=== PATIENT | male | born 1960 | race Caucasian/White ===

== ENCOUNTER 2017-01-27 22:04 | Inpatient (IN) | payer OTHER ==
[~2017-01-27] VITALS: Ht 175.3 cm; Wt 111.5 kg
[2017-01-28 02:16] VITALS: BP 122/64
[2017-01-28 02:28] VITALS: Ht 175.3 cm; Wt 111.5 kg
[2017-01-28] MEDS ORDERED: GLUCAGON 1 MG INJ IM PRN (03:30)
[2017-01-28] MEDS ORDERED: DEXTROSE 50% 50 ML SYRINGE IV PRN ×2 (03:30)
[2017-01-28] MEDS ORDERED: GLUCOSE GEL 15 GRAM TUBE BUCCAL PRN (03:30)
[2017-01-28] MEDS ORDERED: morphine 4 MG/ML VIAL IV PRN (03:30)
[2017-01-28] MEDS ORDERED: ONDANSETRON 4 MG INJ IV PRN (03:30)
[2017-01-28] MEDS ORDERED: GLUCOSE GEL 15 GRAM TUBE PO PRN ×2 (03:30)
[2017-01-28 05:10] LABS: ADD SCAN DIFF NO
[2017-01-28 05:17] LABS: BASOPHIL # 0.1 10^3/ul (0.0-0.1); BASOPHILS % 0.7 % (0.0-2.0); EOSINOPHILS # 1.2 10^3/ul (0.0-0.5); EOSINOPHILS % 9.2 % (0.0-7.0); HEMATOCRIT 43.3 % (42.0-52.0); HEMOGLOBIN 14.6 g/dl (14.0-18.0); LYMPHOCYTES # 2.5 10^3/ul (0.8-2.9); LYMPHOCYTES % 19.2 % (15.0-51.0); MEAN CORPUSCULAR HEMOGLOBIN 29.7 pg (29.0-33.0); MEAN CORPUSCULAR HGB CONC 33.7 g/dl (32.0-37.0); MEAN PLATELET VOLUME 9.6 fl (7.4-10.4); MONOCYTES % 7.7 % (0.0-11.0); NEUTROPHIL # 8.2 10^3/ul (1.6-7.5); NEUTROPHILS % 62.7 % (39.0-77.0); PLATELET COUNT 263 10^3/UL (140-415); RED BLOOD COUNT 4.92 10^6/ul (4.70-6.10); RED CELL DISTRIBUTION WIDTH 12.9 % (11.5-14.5); WHITE BLOOD COUNT 13.2 10^3/ul (4.8-10.8)
[2017-01-28 05:42] LABS: CALCIUM 8.6 mg/dl (8.4-10.2); CHOL/HDL RATIO 5.2 RATIO; CREATININE 0.97 mg/dl (0.61-1.24); MAGNESIUM 1.8 mg/dl (1.7-2.5); POTASSIUM 3.5 mmol/L (3.5-5.1)
[2017-01-28] MEDS: DEXTROSE 5%-0.45% NACL 1,000 ML IV SCH ×3 (05:57→20:46)
[2017-01-28] MEDS: metroNIDAZOLE 500 MG/NS (PMX) 100 ML IVPB SCH ×3 (05:59→21:58)
[2017-01-28] MEDS: INSULIN ASPART [NOVOLOG] 3 ML PEN SC SCH ×3 (06:00→18:00)
[2017-01-28] MEDS ORDERED: AMLO5TAB4 PO (07:26)
[2017-01-28] MEDS ORDERED: ASPI81TA3 PO (07:26)
[2017-01-28] MEDS ORDERED: BENA40TA41 PO (07:26)
[2017-01-28] MEDS ORDERED: METO-429 PO (07:49)
[2017-01-28] MEDS ORDERED: HYD25 PO (07:49)
[2017-01-28 08:23] VITALS: BP 118/57; RESP 18
[2017-01-28] MEDS: INSULIN GLARGINE [LANtus] 3 ML PEN SC SCH (08:42)
[2017-01-28] MEDS: CIPROFLOXACIN 400MG/D5W 200 ML IVPB SCH ×2 (08:43→20:44)
--- NOTE | 2017-01-28 11:54 | HP ---
Date/Time of Note Date/Time of Note DATE: 01/28/17 TIME: 11:53 Assessment/Plan Lines/Catheters IV Catheter Type (from Nrsg): Peripheral IV Urinary Cath still in place: No Assessment/Plan Assessment/Plan 1. Diverticulitis - cipro and flagyl - stool cx including c-diff - pain mgmt - ID consult 2. Abd pain 2/2 above 3. Hx of HTN - cont meds and adjust as needed 4. Type II Diabetes - insulin while in-house HPI/ROS Admit Date/Time Admit Date/Time January 28, 2017 at 01:47 Hx of Present Illness Patient is a 56 yo male with hx of HTN and DM who presented to [facility] c/o abd pain and diarrhea of 1 month duration. Pain is mainly localized in LLQ area. Diarrhea is described as watery and loose, about 3 -4 times per day. Last BM was actually yesterday and he only had one episode of loose stool. Pt resides here in , but went to [facility] for a visit where his symptom of abd pain and diarrhea started. he attributed this to the sea food that he ate. denied sick contact. He did not seek help while he was in [facility]. He reported nausea. Denied chest pain, SOB, fever/chills. . PMH/Family/Social Social History Smoking Status: Former smoker Exam/Review of Systems Vital Signs Vitals Vital Signs Date Time Temp Pulse Resp B/P Pulse Ox O2 Delivery O2 Flow Rate FiO2 01/28/17 08:23 97.4 70 18 118/57 94 Intake and Output 01/27/17 01/27/17 01/28/17 14:59 22:59 06:59 Intake Total 50 ml Output Total 1 ml Balance 49 ml Labs Result Diagram: 01/28/17 0500 01/28/17 0500 Medications Medications Current Medications Dextrose/Sodium Chloride (D5-1/2ns) 1,000 ml @ 100 mls/hr Q10H IV Last administered on 01/28/17 05:57; Admin Dose 100 MLS/HR; Start 01/28/17 at 03:30 Morphine Sulfate (morphine) 3 mg Q4H PRN IV PAIN Last administered on 06:08; Admin Dose 3 MG; Start 01/28/17 at 03:30 Ondansetron HCl 4 mg 4 mg Q6H PRN IV NAUSEA AND/OR VOMITING Last administered on 01/28/17 08:43; Admin Dose 4 MG; Start 01/28/17 at 03:30 Metronidazole 100 ml @ 100 mls/hr Q6 IVPB Last administered on 01/28/17 11:46 ; Admin Dose 100 MLS/HR; Start 01/28/17 at 06:00 Ciprofloxacin/ Dextrose (Cipro Ivpb) 200 ml @ 200 mls/hr Q12 IVPB Last administered on 01/28/17 08:43; Admin Dose 200 MLS/HR; Start 01/28/17 at 09:00 Insulin Glargine (Lantus) 10 unit DAILY@08 SC Last administered on 01/28/17 08 :42; Admin Dose 10 UNIT; Start 01/28/17 at 08:00 Insulin Aspart (Novolog Insulin Pen) NOVOLOG *MODERATE* ALGORI... Q6 SC ; Start 01/28/17 at 06:00 Miscellaneous Information 1 ea NOTE XX ; Start 01/28/17 at 03:30 Glucose (Glutose) 15 gm Q15M PRN PO DECREASED GLUCOSE; Start 01/28/17 at 03:30 Glucose (Glutose) 22.5 gm Q15M PRN PO DECREASED GLUCOSE; Start 01/28/17 at 03: 30 Dextrose (D50w Syringe) 25 ml Q15M PRN IV DECREASED GLUCOSE; Start 01/28/17 at 03:30 Dextrose (D50w Syringe) 50 ml Q15M PRN IV DECREASED GLUCOSE; Start 01/28/17 at 03:30 Glucagon (Glucagen) 1 mg Q15M PRN IM DECREASED GLUCOSE; Start 01/28/17 at 03:30 Glucose (Glutose) 15 gm Q15M PRN BUCCAL DECREASED GLUCOSE; Start 01/28/17 at 03 :30 ALEJANDRO GREENWOOD MD January 28, 2017 11:54
[2017-01-28] MEDS ORDERED: BARIUM SULF 2% 450 ML BTL (BERRY SMOOTHIE) PO ONE (14:30)
--- NOTE | 2017-01-28 14:30 | PN ---
Date/Time of Note Date/Time of Note DATE: 01/28/17 TIME: 14:24 Assessment/Plan VTE Prophylaxis VTE Prophylaxis Intervention: contraindicated Lines/Catheters [facility] (from [facility] Peripheral IV Urinary Cath still in place: No Assessment/Plan Chief Complaint/Hosp Course S: Pt states of having 1 mnth diarrhea. Multiple bouts of loose watery diarrhea over. Started after he returned from [facility]. States mostly he was in a urban environment. Did not visit any sick family members or visit hospital. Did not take any antibiotics. Took Pepto Imodium antacids otc's etc. Yesterday to the hospital due to abd pain. Llq radiates towards luq. Fairly constant. Feels distended with less flatus. Appetite/ hunger may be ok. No hematuria or hematochezia. No alcohol use. Colonoscopy at [facility] many years ago when he was told to take fiber/ psyllium. O: Vss PE No pallor adenopathy icterus Regular Clear Bs diminished, mild tender mostly llq; no r/r/. obese. No edema A/P 1. Abd pain, likely diverticulitis. Stable npo/IVf/atb's 2. Chr diverticulosis. May need colonoscopy 3. Recent probable gastroenteritis 4. Diabetes/metabolic syndrome 5. Past tobacco Problems: Exam/Review of Systems Vital Signs Vitals Vital Signs Date Time Temp Pulse Resp B/P Pulse Ox O2 Delivery O2 Flow Rate FiO2 01/28/17 08:23 97.4 70 18 118/57 94 Intake and Output 01/27/17 01/27/17 01/28/17 15:00 23:00 07:00 Intake Total 150 ml Output Total 1 ml Balance 149 ml Results Result Diagram: 01/28/17 0500 01/28/17 0500 Results 24 hrs Laboratory Tests Test 01/28/17 05:00 01/28/17 06:10 01/28/17 08:36 01/28/17 11:51 White Blood Count 13.2 H Red Blood Count 4.92 Hemoglobin 14.6 Hematocrit 43.3 Mean Corpuscular Volume 88.0 Mean Corpuscular Hemoglobin 29.7 Mean Corpuscular Hemoglobin Concent 33.7 Red Cell Distribution Width 12.9 Platelet Count 263 Mean Platelet Volume 9.6 Neutrophils % 62.7 Lymphocytes % 19.2 Monocytes % 7.7 Eosinophils % 9.2 H Basophils % 0.7 Nucleated Red Blood Cells % 0.0 Neutrophils # 8.2 H Lymphocytes # 2.5 Monocytes # 1.0 H Eosinophils # 1.2 H Basophils # 0.1 Nucleated Red Blood Cells # 0.0 Sodium Level 135 Potassium Level 3.5 Chloride Level 102 Carbon Dioxide Level 27 Anion Gap 10 Blood Urea Nitrogen 13 Creatinine 0.97 Glucose Level 133 Calcium Level 8.6 Phosphorus Level 4.0 Magnesium Level 1.8 Triglycerides Level 183 H Cholesterol Level 143 LDL Cholesterol, Calculated 79 HDL Cholesterol 27 L Cholesterol/HDL Ratio 5.2 Bedside Glucose 125 128 125 Medications Medications Current Medications Dextrose/Sodium Chloride (D5-1/2ns) 1,000 ml @ 100 mls/hr Q10H IV Last administered on 01/28/17 05:57; Admin Dose 100 MLS/HR; Start 01/28/17 at 03:30 Morphine Sulfate (morphine) 3 mg Q4H PRN IV PAIN Last administered on 06:08; Admin Dose 3 MG; Start 01/28/17 at 03:30 Ondansetron HCl 4 mg 4 mg Q6H PRN IV NAUSEA AND/OR VOMITING Last administered on 01/28/17 08:43; Admin Dose 4 MG; Start 01/28/17 at 03:30 Ciprofloxacin/ Dextrose (Cipro Ivpb) 200 ml @ 200 mls/hr Q12 IVPB Last administered on 01/28/17 08:43; Admin Dose 200 MLS/HR; Start 01/28/17 at 09:00 Insulin Glargine (Lantus) 10 unit DAILY@08 SC Last administered on 01/28/17 08 :42; Admin Dose 10 UNIT; Start 01/28/17 at 08:00 Insulin Aspart (Novolog Insulin Pen) NOVOLOG *MODERATE* ALGORI... Q6 SC ; Start 01/28/17 at 06:00 Miscellaneous Information 1 ea NOTE XX ; Start 01/28/17 at 03:30 Glucose (Glutose) 15 gm Q15M PRN PO DECREASED GLUCOSE; Start 01/28/17 at 03:30 Glucose (Glutose) 22.5 gm Q15M PRN PO DECREASED GLUCOSE; Start 01/28/17 at 03: 30 Dextrose (D50w Syringe) 25 ml Q15M PRN IV DECREASED GLUCOSE; Start 01/28/17 at 03:30 Dextrose (D50w Syringe) 50 ml Q15M PRN IV DECREASED GLUCOSE; Start 01/28/17 at 03:30 Glucagon (Glucagen) 1 mg Q15M PRN IM DECREASED GLUCOSE; Start 01/28/17 at 03:30 Glucose 15 gm 15 gm Q15M PRN BUCCAL DECREASED GLUCOSE; Start 01/28/17 at 03:30 Metronidazole (Flagyl 500 Mg (Pmx)) 100 ml @ 100 mls/hr TID IVPB ; Start at 21:00; Status UNV Famotidine (Pepcid Iv) 20 mg DAILY IV ; Start 01/28/17 at 14:30; Status UNV ISAI CHRISTIE MD January 28, 2017 14:30
[2017-01-28] MEDS: FAMOTIDINE 20 MG INJ IV SCH (14:34)
--- NOTE | 2017-01-28 16:19 | RADRPT ---
PROCEDURE: XR Chest. CLINICAL INDICATION: Shortness of breath. TECHNIQUE: Single frontal view. COMPARISON: None. FINDINGS: There is mild atelectasis at the lung bases. The lungs are otherwise clear. The heart size is normal. There is no pleural effusion. There is no pneumothorax. IMPRESSION: 1. Mild atelectasis at the lung bases. 2. Otherwise normal chest radiograph. RPTAT: QQ .Ye Car MD, MD Date Time Electronically viewed and signed by .Ye Car MD, MD on 01/28/2017 16:19 .R/
--- NOTE | 2017-01-28 16:23 | RADRPT ---
PROCEDURE: CT Abdomen and Pelvis without contrast. CLINICAL INDICATION: Abdominal and pelvic pain. Diarrhea. TECHNIQUE: CT scan of the abdomen and pelvis without contrast was performed. Coronal and sagittal reformatted images were obtained from the axial source images. Images were reviewed on a high[employer] PACS workstation. Total exam DLP is 1510.26 mGy-cm. CTDIvol is 23.01 mGy. One or more of the following dose reduction techniques were used: Automated exposure control, adjustment of the mA and/ or kV according to patient size, use of iterative reconstruction technique. COMPARISON: None. FINDINGS: The lung bases are normal. There is no pleural effusion. The liver is normal in size and diffusely decreased attenuation consistent with fatty metamorphosis. There is no focal hepatic lesion. The gallbladder and bile ducts are normal. The spleen is normal in size. There is no focal splenic lesion. Both adrenals are normal with no enlargement or mass. The pancreas is unremarkable with no mass or evidence of pancreatitis. There is no renal mass or hydronephrosis. There is no renal calculus or ureteral calculus. The abdominal aorta is not dilated. Vascular calcifications are present consistent with atherosclero sis. There is no retroperitoneal lymphadenopathy or mass. There is no pelvic lymphadenopathy or mass. The bladder and distal ureters are normal. The appendix is well seen and appears normal. There is diverticulosis throughout the colon. There are are regions of probable mild diverticulitis with small regions of mesenteric edema surrounding the lower descending colon and upper sigmoid col on. There is no fluid collection or mass to suggest abscess. The bowel and mesentery are otherwise normal. There is no free fluid or free gas. The osseous structures are unremarkable with no fracture or lytic lesion. IMPRESSION: 1. Fatty metamorphosis of the liver. 2. Atherosclerosis. 3. Normal appendix. 4. Diverticulosis throughout the colon. 5. Small regions of probable mild diverticulitis in the lower descending colon and upper sigmoid co remi. Clinical correlation and follow-up advised. 6. Otherwise unremarkable study. RPTAT: QQ .Ye Car MD, MD Date Time Electronically viewed and signed by .Ye Car MD, on 01/28/2017 16:22 .R/
[2017-01-28 17:22] LABS: ADD UMIC YES; URINE BILIRUBIN (Dip) NEGATIVE (NEGATIVE); URINE BLOOD (Dip) NEGATIVE (NEGATIVE); URINE COLOR LT. YELLOW (YELLOW); URINE GLUCOSE (Dip) NEGATIVE (NEGATIVE); URINE KETONES (Dip) NEGATIVE (NEGATIVE); URINE LEUKOCYTE ESTERASE (Dip) NEGATIVE (NEGATIVE); URINE NITRITE (Dip) NEGATIVE (NEGATIVE); URINE TOTAL PROTEIN (Dip) 2+ (NEGATIVE); URINE UROBILINOGEN (Dip) 0.2 E.U./dL (0.1-1.0)
[2017-01-28 18:06] LABS: BACTERIA,URINE FEW; URINE RBCS 0-2 /HPF (0)
[2017-01-28 20:04] VITALS: BP 132/67; RESP 18
[2017-01-29 05:31] LABS: ADD SCAN DIFF NO
[2017-01-29 05:54] LABS: INR 1.11; PROTIME 14.3 Sec (12.2-14.2); PT RATIO 1.1
[2017-01-29] MEDS: INSULIN ASPART [NOVOLOG] 3 ML PEN SC SCH ×4 (06:00→17:49)
[2017-01-29 06:03] LABS: BASOPHIL # 0.1 10^3/ul (0.0-0.1); BASOPHILS % 0.9 % (0.0-2.0); EOSINOPHILS % 9.7 % (0.0-7.0); HEMATOCRIT 42.5 % (42.0-52.0); HEMOGLOBIN 14.4 g/dl (14.0-18.0); LYMPHOCYTES # 1.9 10^3/ul (0.8-2.9); LYMPHOCYTES % 19.7 % (15.0-51.0); MEAN CORPUSCULAR HEMOGLOBIN 30.3 pg (29.0-33.0); MEAN CORPUSCULAR HGB CONC 33.9 g/dl (32.0-37.0); MEAN CORPUSCULAR VOLUME 89.5 fl (82.0-101.0); MEAN PLATELET VOLUME 9.8 fl (7.4-10.4); MONOCYTE # 0.9 10^3/ul (0.3-0.9); MONOCYTES % 8.7 % (0.0-11.0); NEUTROPHILS % 60.6 % (39.0-77.0); PLATELET COUNT 249 10^3/UL (140-415); RED BLOOD COUNT 4.75 10^6/ul (4.70-6.10); RED CELL DISTRIBUTION WIDTH 12.6 % (11.5-14.5); WHITE BLOOD COUNT 9.8 10^3/ul (4.8-10.8)
[2017-01-29 06:14] LABS: ALBUMIN 3.5 g/dl (3.3-4.9); ALBUMIN/GLOBULIN RATIO 1.16; BILIRUBIN,INDIRECT 0.5 mg/dl (0-1.1); BILIRUBIN,TOTAL 0.5 mg/dl (0.2-1.3); CALCIUM 8.4 mg/dl (8.4-10.2); CREATININE 1.13 mg/dl (0.61-1.24); PHOSPHORUS 3.5 mg/dl (2.5-4.9); POTASSIUM 3.6 mmol/L (3.5-5.1); TOTAL PROTEIN 6.5 g/dl (6.1-8.1)
[2017-01-29 06:33] LABS: THYROID STIMULATING HORMONE 2.35 MIU/L (0.465-4.680)
[2017-01-29 08:03] VITALS: BP 119/67; RESP 17
[2017-01-29] MEDS: CIPROFLOXACIN 400MG/D5W 200 ML IVPB SCH ×2 (08:24→23:12)
[2017-01-29] MEDS: FAMOTIDINE 20 MG INJ IV SCH (08:24)
[2017-01-29] MEDS: INSULIN GLARGINE [LANtus] 3 ML PEN SC SCH (08:26)
[2017-01-29] MEDS: ENOXAPARIN 40 MG/0.4 ML SYG SC SCH (08:26)
[2017-01-29] MEDS: metroNIDAZOLE 500 MG/NS (PMX) 100 ML IVPB SCH ×3 (09:51→21:41)
[2017-01-29] MEDS: DEXTROSE 5%-0.45% NACL 1,000 ML IV SCH ×2 (09:52→17:49)
--- NOTE | 2017-01-29 10:52 | CONS ---
Date/Time of Note Date/Time of Note DATE: 01/29/17 TIME: 10:42 Assessment/Plan Assessment/Plan Additional Assessment/Plan Diarrhea/Abdominal pain/Diverticulitis Continue antibiotic treatment Okay to start clears Colonoscopy in 6 - 8 weeks after completion of antibiotic treatment CT abdomen: 1. Fatty metamorphosis of the liver. 2. Atherosclerosis. 3. Normal appendix. 4. Diverticulosis throughout the colon. 5. Small regions of probable mild diverticulitis in the lower descending colon and upper sigmoid colon. Clinical correlation and follow-up advised. Rule out C. difficile May require surgical consult Fatty liver Encourage weight loss Hypertension Management per Primary Continue home medication Type 2 diabetes Management per Primary Accu-Cheks per protocol Further recommendations depend on clinical course Patient seen in collaboration with Dr. Mason Consultation Date/Type/Reason Admit Date/Time January 28, 2017 at 01:47 Initial Consult Date Type of Consultation: Gastroenterology Reason for Consultation Diverticulitis 24 HR Interval Summary Free Text/Dictation Mr. Max De La O is a 56-year-old male that presents with 1 month of abdominal pain with intermittent diarrhea. Patient reports last formed stool on and has been taking Imodium as needed for diarrhea symptoms. Patient reports history of diverticulosis diagnosis 4 years ago at [facility]. Patient denies hematochezia, nausea, vomiting, recent antibiotic use, sick contacts, fever, and chills. Patient did travel outside of the [place] also with a recently, but denies diarrhea symptoms when out of the country. Patient has past medical history of hypertension, fatty liver disease, and type 2 diabetes. At bedside patient reports left lower quadrant abdominal pain. Patient tolerating clears without additional pain. We will continue antibiotic treatment. C. difficile stool results pending. Exam/Review of Systems Vital Signs Vitals Vital Signs Date Time Temp Pulse Resp B/P Pulse Ox O2 Delivery O2 Flow Rate FiO2 01/29/17 08:03 98.1 67 17 119/67 95 Intake and Output 01/28/17 01/28/17 01/29/17 15:00 23:00 07:00 Intake Total 300 ml 1150 ml 900 ml Balance 300 ml 1150 ml 900 ml Exam Constitutional: alert, oriented, well developed Psych: nl mood/affect Head: normocephalic Eyes: EOMI, nl conjunctiva, nl lids ENMT: nl external ears & nose, nl lips & teeth, nl nasal mucosa & septum Respiratory: clear to auscultation, normal air movement Cardiovascular: regular rate and rhythm Gastrointestinal: soft, left lower quadrant tenderness Musculoskeletal: nl extremities to inspection Neurological: [employer] II-XII intact Results Result Diagram: 01/29/17 0518 01/29/17 0510 Results 24 hrs Laboratory Tests Test 01/28/17 11:51 01/28/17 17:00 01/28/17 18:17 01/29/17 01:36 Bedside Glucose 125 111 106 Urine Color LT. YELLOW Urine Clarity CLEAR Urine pH 6.5 Urine Specific [place] 1.020 Urine Ketones NEGATIVE Urine Nitrite NEGATIVE Urine Bilirubin NEGATIVE Urine Urobilinogen 0.2 E.U./dL Urine Leukocyte Esterase NEGATIVE Urine Microscopic RBC 0-2 Urine Microscopic WBC 0-2 Urine Epithelial Cells OCCASIONAL Urine Bacteria FEW Urine Hemoglobin NEGATIVE Urine Glucose NEGATIVE Urine Total Protein 2+ H Test 01/29/17 05:10 01/29/17 05:18 01/29/17 06:10 01/29/17 08:10 Prothrombin Time 14.3 H Prothrombin Time Ratio 1.1 INR International Normalized Ratio 1.11 Sodium Level 136 Potassium Level 3.6 Chloride Level 104 Carbon Dioxide Level 28 Anion Gap 8 Blood Urea Nitrogen 13 Creatinine 1.13 Glucose Level 139 Hemoglobin A1c 7.7 H Calcium Level 8.4 Phosphorus Level 3.5 Magnesium Level 2.0 Total Bilirubin 0.5 Direct Bilirubin 0.00 Indirect Bilirubin 0.5 Aspartate Amino Transf (AST/SGOT) 46 Alanine Aminotransferase (ALT/SGPT) 71 H Alkaline Phosphatase 57 Total Protein 6.5 Albumin 3.5 Globulin 3.00 Albumin/Globulin Ratio 1.16 Thyroid Stimulating Hormone (TSH) 2.350 White Blood Count 9.8 # Red Blood Count 4.75 Hemoglobin 14.4 Hematocrit 42.5 Mean Corpuscular Volume 89.5 Mean Corpuscular Hemoglobin 30.3 Mean Corpuscular Hemoglobin Concent 33.9 Red Cell Distribution Width 12.6 Platelet Count 249 Mean Platelet Volume 9.8 Neutrophils % 60.6 Lymphocytes % 19.7 Monocytes % 8.7 Eosinophils % 9.7 H Basophils % 0.9 Nucleated Red Blood Cells % 0.0 Neutrophils # 6.0 Lymphocytes # 1.9 Monocytes # 0.9 Eosinophils # 1.0 H Basophils # 0.1 Nucleated Red Blood Cells # 0.0 Bedside Glucose 118 122 Medications Medications Current Medications Dextrose/Sodium Chloride (D5-1/2ns) 1,000 ml @ 100 mls/hr Q10H IV Last administered on 01/29/17 09:52; Admin Dose 100 MLS/HR; Start 01/28/17 at 03:30 Morphine Sulfate (morphine) 3 mg Q4H PRN IV PAIN Last administered on 06:08; Admin Dose 3 MG; Start 01/28/17 at 03:30 Ondansetron HCl 4 mg 4 mg Q6H PRN IV NAUSEA AND/OR VOMITING Last administered on 01/28/17 08:43; Admin Dose 4 MG; Start 01/28/17 at 03:30 Ciprofloxacin/ Dextrose (Cipro Ivpb) 200 ml @ 200 mls/hr Q12 IVPB Last administered on 01/29/17 08:24; Admin Dose 200 MLS/HR; Start 01/28/17 at 09:00 Insulin Glargine (Lantus) 10 unit DAILY@08 SC Last administered on 01/29/17 08 :26; Admin Dose 10 UNIT; Start 01/28/17 at 08:00 Insulin Aspart (Novolog Insulin Pen) NOVOLOG *MODERATE* ALGORI... Q6 SC ; Start 01/28/17 at 06:00 Miscellaneous Information 1 ea NOTE XX ; Start 01/28/17 at 03:30 Glucose (Glutose) 15 gm Q15M PRN PO DECREASED GLUCOSE; Start 01/28/17 at 03:30 Glucose (Glutose) 22.5 gm Q15M PRN PO DECREASED GLUCOSE; Start 01/28/17 at 03: 30 Dextrose (D50w Syringe) 25 ml Q15M PRN IV DECREASED GLUCOSE; Start 01/28/17 at 03:30 Dextrose (D50w Syringe) 50 ml Q15M PRN IV DECREASED GLUCOSE; Start 01/28/17 at 03:30 Glucagon (Glucagen) 1 mg Q15M PRN IM DECREASED GLUCOSE; Start 01/28/17 at 03:30 Glucose 15 gm 15 gm Q15M PRN BUCCAL DECREASED GLUCOSE; Start 01/28/17 at 03:30 Metronidazole (Flagyl 500 Mg (Pmx)) 100 ml @ 100 mls/hr TID IVPB Last administered on 01/29/17 09:51; Admin Dose 100 MLS/HR; Start 01/28/17 at 21:00 Famotidine (Pepcid Iv) 20 mg DAILY IV Last administered on 01/29/17 08:24; Admin Dose 20 MG; Start 01/28/17 at 14:30 Enoxaparin Sodium (Lovenox) 40 mg DAILY SC Last administered on 01/29/17 08:26 ; Admin Dose 40 MG; Start 01/29/17 at 09:00 WIL GLASS January 29, 2017 10:52
--- NOTE | 2017-01-29 14:48 | PN ---
Date/Time of Note Date/Time of Note DATE: 01/29/17 TIME: 14:47 Assessment/Plan VTE Prophylaxis VTE Prophylaxis Intervention: LMWH Lines/Catheters IV [facility] Type (from [facility] Peripheral IV Urinary Cath still in place: No Assessment/Plan Chief Complaint/Hosp Course S: Pt states of having 1 mnth diarrhea. Multiple bouts of loose watery diarrhea over. Started after he returned from [facility]. States mostly he was in a urban environment. Did not visit any sick family members or visit hospital. Did not take any antibiotics. Took Pepto Imodium antacids otc's etc. Yesterday to the hospital due to abd pain. Llq radiates towards luq. Fairly constant. Feels distended with less flatus. Appetite/ hunger may be ok. No hematuria or hematochezia. No alcohol use. Colonoscopy at [facility] many years ago when he was told to take fiber/ psyllium. 01/29: Less abd pain. Positive flatus appetite. O: Vss PE No pallor Reg Clear Bs diminished, mild tender mostly llq; no r/r/. obese. No edema A/P 1. Abd pain/ ac diverticulitis. Stable clears/IVf/atb's 2. Chr diverticulosis. colonoscopy outpt. 3. Recent probable gastroenteritis 4. DM/metabolic syndrome 5. Past tobacco Problems: Exam/Review of Systems Vital Signs Vitals Vital Signs Date Time Temp Pulse Resp B/P Pulse Ox O2 Delivery O2 Flow Rate FiO2 01/29/17 08:03 98.1 67 17 119/67 95 Intake and Output 01/28/17 01/28/17 01/29/17 15:00 23:00 07:00 Intake Total 300 ml 1150 ml 900 ml Balance 300 ml 1150 ml 900 ml Results Result Diagram: 01/29/17 0518 01/29/17 0510 Results 24 hrs Laboratory Tests Test 01/28/17 17:00 01/28/17 18:17 01/29/17 01:36 01/29/17 05:10 Urine Color LT. YELLOW Urine Clarity CLEAR Urine pH 6.5 Urine Specific [place] 1.020 Urine Ketones NEGATIVE Urine Nitrite NEGATIVE Urine Bilirubin NEGATIVE Urine Urobilinogen 0.2 E.U./dL Urine Leukocyte Esterase NEGATIVE Urine Microscopic RBC 0-2 Urine Microscopic WBC 0-2 Urine Epithelial Cells OCCASIONAL Urine Bacteria FEW Urine Hemoglobin NEGATIVE Urine Glucose NEGATIVE Urine Total Protein 2+ H Bedside Glucose 111 106 Prothrombin Time 14.3 H Prothrombin Time Ratio 1.1 INR International Normalized Ratio 1.11 Sodium Level 136 Potassium Level 3.6 Chloride Level 104 Carbon Dioxide Level 28 Anion Gap 8 Blood Urea Nitrogen 13 Creatinine 1.13 Glucose Level 139 Hemoglobin A1c 7.7 H Calcium Level 8.4 Phosphorus Level 3.5 Magnesium Level 2.0 Total Bilirubin 0.5 Direct Bilirubin 0.00 Indirect Bilirubin 0.5 Aspartate Amino Transf (AST/SGOT) 46 Alanine Aminotransferase (ALT/SGPT) 71 H Alkaline Phosphatase 57 Total Protein 6.5 Albumin 3.5 Globulin 3.00 Albumin/Globulin Ratio 1.16 Thyroid Stimulating Hormone (TSH) 2.350 Test 01/29/17 05:18 01/29/17 06:10 01/29/17 08:10 01/29/17 12:44 White Blood Count 9.8 # Red Blood Count 4.75 Hemoglobin 14.4 Hematocrit 42.5 Mean Corpuscular Volume 89.5 Mean Corpuscular Hemoglobin 30.3 Mean Corpuscular Hemoglobin Concent 33.9 Red Cell Distribution Width 12.6 Platelet Count 249 Mean Platelet Volume 9.8 Neutrophils % 60.6 Lymphocytes % 19.7 Monocytes % 8.7 Eosinophils % 9.7 H Basophils % 0.9 Nucleated Red Blood Cells % 0.0 Neutrophils # 6.0 Lymphocytes # 1.9 Monocytes # 0.9 Eosinophils # 1.0 H Basophils # 0.1 Nucleated Red Blood Cells # 0.0 Bedside Glucose 118 122 82 Medications Medications Current Medications Dextrose/Sodium Chloride (D5-1/2ns) 1,000 ml @ 100 mls/hr Q10H IV Last administered on 01/29/17 09:52; Admin Dose 100 MLS/HR; Start 01/28/17 at 03:30 Morphine Sulfate (morphine) 3 mg Q4H PRN IV PAIN Last administered on 06:08; Admin Dose 3 MG; Start 01/28/17 at 03:30 Ondansetron HCl 4 mg 4 mg Q6H PRN IV NAUSEA AND/OR VOMITING Last administered on 01/28/17 08:43; Admin Dose 4 MG; Start 01/28/17 at 03:30 Ciprofloxacin/ Dextrose (Cipro Ivpb) 200 ml @ 200 mls/hr Q12 IVPB Last administered on 01/29/17 08:24; Admin Dose 200 MLS/HR; Start 01/28/17 at 09:00 Insulin Glargine (Lantus) 10 unit DAILY@08 SC Last administered on 01/29/17 08 :26; Admin Dose 10 UNIT; Start 01/28/17 at 08:00 Insulin Aspart (Novolog Insulin Pen) NOVOLOG *MODERATE* ALGORI... Q6 SC ; Start 01/28/17 at 06:00 Miscellaneous Information 1 ea NOTE XX ; Start 01/28/17 at 03:30 Glucose (Glutose) 15 gm Q15M PRN PO DECREASED GLUCOSE; Start 01/28/17 at 03:30 Glucose (Glutose) 22.5 gm Q15M PRN PO DECREASED GLUCOSE; Start 01/28/17 at 03: 30 Dextrose (D50w Syringe) 25 ml Q15M PRN IV DECREASED GLUCOSE; Start 01/28/17 at 03:30 Dextrose (D50w Syringe) 50 ml Q15M PRN IV DECREASED GLUCOSE; Start 01/28/17 at 03:30 Glucagon (Glucagen) 1 mg Q15M PRN IM DECREASED GLUCOSE; Start 01/28/17 at 03:30 Glucose 15 gm 15 gm Q15M PRN BUCCAL DECREASED GLUCOSE; Start 01/28/17 at 03:30 Metronidazole (Flagyl 500 Mg (Pmx)) 100 ml @ 100 mls/hr TID IVPB Last administered on 01/29/17 14:33; Admin Dose 100 MLS/HR; Start 01/28/17 at 21:00 Famotidine (Pepcid Iv) 20 mg DAILY IV Last administered on 01/29/17 08:24; Admin Dose 20 MG; Start 01/28/17 at 14:30 Enoxaparin Sodium (Lovenox) 40 mg DAILY SC Last administered on 01/29/17 08:26 ; Admin Dose 40 MG; Start 01/29/17 at 09:00 ISAI CHRISTIE MD January 29, 2017 14:48
[2017-01-29 21:30] VITALS: BP 152/82; RESP 20
[2017-01-30] MEDS ORDERED: ACCUCHECK AT 2AM (Patients on SS coverage) XX SCH (02:00)
[2017-01-30] MEDS: DEXTROSE 5%-0.45% NACL 1,000 ML IV SCH (04:56)
[2017-01-30 04:57] LABS: ADD UMIC YES; URINE BILIRUBIN (Dip) NEGATIVE (NEGATIVE); URINE BLOOD (Dip) NEGATIVE (NEGATIVE); URINE COLOR LT. YELLOW (YELLOW); URINE GLUCOSE (Dip) NEGATIVE (NEGATIVE); URINE KETONES (Dip) NEGATIVE (NEGATIVE); URINE LEUKOCYTE ESTERASE (Dip) NEGATIVE (NEGATIVE); URINE NITRITE (Dip) NEGATIVE (NEGATIVE); URINE TOTAL PROTEIN (Dip) 2+ (NEGATIVE); URINE UROBILINOGEN (Dip) 1.0 E.U./dL (0.1-1.0)
[2017-01-30 05:41] LABS: BACTERIA,URINE FEW; SQUAMOUS EPITHELIAL CELL,UR FEW; URINE RBCS 0-2 /HPF (0)
[2017-01-30 06:33] LABS: ADD SCAN DIFF NO
[2017-01-30 06:38] LABS: BASOPHIL # 0.1 10^3/ul (0.0-0.1); BASOPHILS % 0.8 % (0.0-2.0); EOSINOPHILS # 1.2 10^3/ul (0.0-0.5); EOSINOPHILS % 11.9 % (0.0-7.0); HEMATOCRIT 43.5 % (42.0-52.0); HEMOGLOBIN 14.6 g/dl (14.0-18.0); LYMPHOCYTES # 2.3 10^3/ul (0.8-2.9); LYMPHOCYTES % 23.1 % (15.0-51.0); MEAN CORPUSCULAR HGB CONC 33.6 g/dl (32.0-37.0); MEAN CORPUSCULAR VOLUME 89.3 fl (82.0-101.0); MEAN PLATELET VOLUME 9.9 fl (7.4-10.4); MONOCYTE # 0.7 10^3/ul (0.3-0.9); NEUTROPHIL # 5.6 10^3/ul (1.6-7.5); NEUTROPHILS % 56.9 % (39.0-77.0); PLATELET COUNT 250 10^3/UL (140-415); RED BLOOD COUNT 4.87 10^6/ul (4.70-6.10); RED CELL DISTRIBUTION WIDTH 12.7 % (11.5-14.5); WHITE BLOOD COUNT 9.8 10^3/ul (4.8-10.8)
[2017-01-30 07:01] LABS: ALBUMIN 3.5 g/dl (3.3-4.9)
[2017-01-30 07:02] LABS: POTASSIUM 3.4 mmol/L (3.5-5.1)
[2017-01-30 07:04] LABS: ALBUMIN/GLOBULIN RATIO 1.06; BILIRUBIN,INDIRECT 0.4 mg/dl (0-1.1); BILIRUBIN,TOTAL 0.4 mg/dl (0.2-1.3); CALCIUM 8.2 mg/dl (8.4-10.2); CREATININE 0.96 mg/dl (0.61-1.24); TOTAL PROTEIN 6.8 g/dl (6.1-8.1)
[2017-01-30 07:10] VITALS: BP 123/59; RESP 16
[2017-01-30] MEDS ORDERED: INSULIN ASPART [NOVOLOG] 3 ML PEN SC SCH (07:30)
[2017-01-30] MEDS: Insulin NOVOLOG SS MODERATE Algorithm (SS with meals and bedtime) SC SCH ×2 (08:00→12:00)
[2017-01-30] MEDS: INSULIN GLARGINE [LANtus] 3 ML PEN SC SCH (08:29)
[2017-01-30] MEDS: ENOXAPARIN 40 MG/0.4 ML SYG SC SCH (08:30)
[2017-01-30] MEDS: metroNIDAZOLE 500 MG/NS (PMX) 100 ML IVPB SCH (08:30)
[2017-01-30] MEDS: FAMOTIDINE 20 MG INJ IV SCH (08:31)
[2017-01-30] MEDS: CIPROFLOXACIN 400MG/D5W 200 ML IVPB SCH (09:29)
--- NOTE | 2017-01-30 11:42 | PDOCDIS ---
Discharge Instructions DIAGNOSIS Discharge Diagnosis: diverticulitis CONDITION Patient Condition: Good HOME CARE INSTRUCTIONS: Special Diet: liquids&soft foods for 3days. then advance to reg diet. bland/ low fiber.Your diet recommendation is: no NUTS/ SEEDS ACTIVITY: Activity Restrictions: Slowly Increase Activity FOLLOW UP/APPOINTMENTS Appointments pcp 1wk Dr Mason 3-4wks ISAI CHRISTIE MD January 30, 2017 11:42
[2017-01-30] MEDS ORDERED: METR500T PO (11:43)
[2017-01-30] MEDS ORDERED: CIPR500T4 PO (11:43)
[2017-01-30] MEDS ORDERED: metroNIDAZOLE 500 MG TAB PO SCH (14:00)
[2017-01-30] MEDS ORDERED: CIPROFLOXACIN 500 MG TAB PO SCH (18:00)
--- NOTE | 2017-01-30 19:54 | DS ---
DATE OF ADMISSION: 01/28/2017 DATE OF DISCHARGE: 01/30/2017 PRIMARY CARE PHYSICIAN: Unknown. TRAVEL FREIGHT AND PASSENGER AGENT: Dr. Mason DIAGNOSIS ON ADMISSION: Colitis. DIAGNOSES ON DISCHARGE: 1. Acute diverticulitis. 2. Diverticulosis. 3. Recent gastroenteritis. 4. Chronic diabetes. 5. Metabolic syndrome. 6. Past tobacco. HOSPITAL COURSE: This is a 56-year-old gentleman admitted with abdominal pain, colitis. Presently resolving with conservative measures, Cipro and Flagyl. Will finish its course and will need a colo noscopy in 6 weeks. The patient is aware of the care plan options. He is presently tolerating liqu ids, stable, and fit for discharge. DISCHARGE PLAN: Home. FOLLOWUP: 1. Primary in 1 week. 2. GI in 1 month. DIET: [place] soft to regular for the next week and then may advance to more fiber consistencies down the line. ACTIVITY: No heavy lifting. DURABLE MEDICAL EQUIPMENT: None. CODE STATUS: FULL. CONDITION: Stable. BARRIERS TO DISCHARGE: None. PENDING TESTS: None. FUNCTIONAL STATUS: The patient awake, alert, agrees with plan of care. ALLERGIES: NO KNOWN DRUG ALLERGIES. REASON FOR ADMISSION: Colitis. IMAGING STUDIES: CAT scan abdomen and pelvis read as diverticulosis with small mild diverticulitis, lower descending colon and upper sigmoid. Normal appendix. Fatty metamorphosis of liver. Chest x -ray: No acute process. LABORATORIES: Sodium 140, potassium 3.4, chloride 103, bicarbonate 26, BUN of 10, creatinine 0.9, g lucose of 200, calcium 8. Magnesium of 2, phosphorus of 3. Bilirubin 0, AST and ALT of 55 and 67, alkaline phosphatase of 55, protein of 6.8, albumin 3.5. Cholesterol 140, triglycerides 183, LDL 70 , and HDL low at 27. TSH of 2.3. A1c 7.7. INR of 1. White cell count down to 9, hemoglobin and h ematocrit of 14 and 43, platelets of 250. DISCHARGE MEDICATIONS: STOPPED MEDICATIONS: Hydrochlorothiazide. CONTINUED MEDICATIONS: 1. Benazepril 40. 2. Norvasc 5. 3. Lopressor 50 daily. 4. Aspirin 81 daily. May be restarted in 1 week. ALTERED MEDICATIONS: None. NEW MEDICATIONS: 1. Tylenol. 2. Ciprofloxacin 500 twice daily. 3. Flagyl 3 times daily, both for 10 days. Dictated By: ISAI DUNCAN/RIGO Conf#: [id number] DID#: [id number] CC: ALEJANDRO GREENWOOD MD; PANDA MASON;*EndCC*
== END 2017-01-30 15:57 | disposition home or self-care (01) | DRG 392 ==
LOC: PP2 01-28 01:47
PROVIDERS: ADMIT Internal Medicine; ATTEND Internal Medicine
DX: K57.92 Diverticulitis of intestine, part unspecified, without perforation or abscess without bleeding (principal); E88.81 Metabolic syndrome and other insulin resistance; I10 Essential (primary) hypertension; E11.9 Type 2 diabetes mellitus without complications; Z87.891 Personal history of nicotine dependence
CPT/HCPCS: 71010; 74176; 80048; 80053; 80061; 81001; 81003; 82306; 82962; 83036; 83735; 84100; 84443; 85025; 85610; 86674; 87045; 87338; 93005; J0744; J1650; J1815; J2270; J2405; J7042

== ENCOUNTER 2019-07-12 15:24 | Emergency (ER) | payer OTHER ==
[~2019-07-12] VITALS: Ht 167.6 cm; Wt 116.6 kg
[~2019-07-12 15:24] MED LIST: AMLO-145 PO; APIX5TAB PO; BENA40TA56 PO; HYDR25TA6 PO; METO-429 PO
[2019-07-12 15:27] VITALS: Ht 167.6 cm; Wt 116.6 kg
[2019-07-12 17:40] VITALS: BP 157/78; PULSE 78; RESP 18
== END 2019-07-12 17:41 | disposition home or self-care (01) ==
LOC: FTE 15:24
DX: I11.0 Hypertensive heart disease with heart failure (principal); I50.9 Heart failure, unspecified; I48.91 Unspecified atrial fibrillation; Z79.01 Long term (current) use of anticoagulants; Z79.82 Long term (current) use of aspirin
CPT/HCPCS: 71045; 80053; 84484; 85025; 93005